=== PATIENT | male | born 1980 | race Hispanic/Latino ===

== ENCOUNTER 2019-07-01 10:02 | Emergency (ER) | payer SELFPAY ==
[~2019-07-01] VITALS: Ht 165.1 cm; Wt 68.0 kg
--- OUTSIDE RECORDS SUMMARY | 2019-07-01 10:05 | XMS REPORT ---
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 Allergies, Adverse Reactions, Alerts Allergy Name Allergy Type Status Severity Reaction(s) Onset Date Inactive Date Treating Clinician Comments No Known Allergies DA Active U 2018-09-04 00:00:00 Medications This patient has no known medications. Results Test Description Test Time Test Comments Text Results Atomic Results Result Comments LIPASE 2018-09-09 08:23:00 LIPASE (test code=LIP) 1541 U/L 73.0-393.0 [id number] 10:41:00* Test Item Value Reference Range Comments LIPASE (test code=LIP) 1370 U/L 73.0-393.0 [id number] 07:53:00* Test Item Value Reference Range Comments LIPASE (test code=LIP) 2076 U/L 73.0-393.0 COMPREHENSIVE METABOLIC [id number] 05:50:00* Test Item Value Reference Range Comments SODIUM (test code=NA) 137 mmol/L 136-145 POTASSIUM (test code=K) 3.4 mmol/L 3.5-5.1 CHLORIDE (test code=CL) 103.0 mmol/L 98-107 CARBON DIOXIDE (test code=CO2) 26.0 mmol/L 21-32 ANION GAP (test code=GAP) 11.4 10-20 GLUCOSE (test code=GLU) 74 mg/dL 74-106 BLOOD UREA NITROGEN (test code=BUN) 12 mg/dL 7-18 GLOMERULAR FILTRATION RATE (test code=GFR) > 60 mL/min >=60 Estimated GFR by using Modified MDRD formula.Chronic kidney disease is defined as either kidney damageor GFR <60 mL/min/1.73 m2 for >3 months. CREATININE (test code=CREAT) 0.70 mg/dL 0.7-1.3 BUN/CREATININE RATIO (test code=BUN/CREA) 16.8 10-20 TOTAL PROTEIN (test code=PROT) 6.8 gram/dL 6.4-8.2 ALBUMIN (test code=ALB) 3.3 g/dL 3.4-5.0 GLOBULIN (test code=GLOB) 3.5 gram/dL 2.7-4.2 ALBUMIN/GLOBULIN RATIO (test code=A/G) 0.9 0.75-1.50 CALCIUM (test code=CA) 8.7 mg/dL 8.5-10.1 BILIRUBIN TOTAL (test code=BILT) 1.10 mg/dL 0.0-1.0 SGOT/AST (test code=AST) 26 IUnit/L 15-37 SGPT/ALT (test code=ALT) 32 IUnit/L 12-78 ALKALINE PHOSPHATASE TOTAL (test code=ALKP) 86 IUnit/L 45-117 Note change in reference range due to change in reagent. [id number] 05:50:00* Test Item Value Reference Range Comments LIPASE (test code=LIP) 5933 U/L 73.0-393.0 COMPREHENSIVE METABOLIC [id number] 05:40:00* Test Item Value Reference Range Comments SODIUM (test code=NA) 137 mmol/L 136-145 POTASSIUM (test code=K) 3.4 mmol/L 3.5-5.1 CHLORIDE (test code=CL) 103.0 mmol/L 98-107 CARBON DIOXIDE (test code=CO2) mmol/L 21-32 ANION GAP (test code=GAP) 10-20 GLUCOSE (test code=GLU) mg/dL 74-106 BLOOD UREA NITROGEN (test code=BUN) mg/dL 7-18 GLOMERULAR FILTRATION RATE (test code=GFR) mL/min >=60 CREATININE (test code=CREAT) mg/dL 0.7-1.3 BUN/CREATININE RATIO (test code=BUN/CREA) 10-20 TOTAL PROTEIN (test code=PROT) gram/dL 6.4-8.2 ALBUMIN (test code=ALB) g/dL 3.4-5.0 GLOBULIN (test code=GLOB) gram/dL 2.7-4.2 ALBUMIN/GLOBULIN RATIO (test code=A/G) 0.75-1.50 CALCIUM (test code=CA) mg/dL 8.5-10.1 BILIRUBIN TOTAL (test code=BILT) mg/dL 0.0-1.0 SGOT/AST (test code=AST) IUnit/L 15-37 SGPT/ALT (test code=ALT) IUnit/L 12-78 ALKALINE PHOSPHATASE TOTAL (test code=ALKP) IUnit/L 45-117 [id number] 05:40:00* Test Item Value Reference Range Comments LIPASE (test code=LIP) U/L 73.0-393.0 CBC W/AUTO [id number] 05:37:00* Test Item Value Reference Range Comments WHITE BLOOD CELL (test code=WBC) 11.7 K/mm3 4.5-12.5 RED BLOOD CELL (test code=RBC) 4.75 mill/mm3 4.0-5.8 HEMOGLOBIN (test code=HGB) 15.5 gram/dL 13.0-17.5 HEMATOCRIT (test code=HCT) 44.9 % 42.0-52.0 MEAN CELL VOLUME (test code=MCV) 94.5 fL 80-98 MEAN CELL HGB (test code=MCH) 32.6 picogram 27.0-33.0 MEAN CELL HGB CONCETRATION (test code=MCHC) 34.5 gram/dL 33.0-36.0 RED CELL DISTRIBUTION WIDTH (test code=RDW) 12.8 % 11.6-16.2 RED CELL DISTRIBUTION WIDTH SD (test code=RDW-SD) 45.0 fL 37.0-51.0 PLATELET COUNT (test code=PLT) 297 K/mm3 150-450 MEAN PLATELET VOLUME (test code=MPV) 10.2 fL 6.7-11.0 NEUTROPHIL % (test code=NT%) 79.3 % 39.0-69.0 IMMATURE GRANULOCYTE % (test code=IG%) 0.7 % 0.0-5.0 LYMPHOCYTE % (test code=LY%) 11.8 % 25.0-55.0 MONOCYTE % (test code=MO%) 6.4 % 0.0-10.0 EOSINOPHIL % (test code=EO%) 1.2 % 0.0-5.0 BASOPHIL % (test code=BA%) 0.6 % 0.0-1.0 NUCLEATED RBC % (test code=NRBC%) 0.0 % 0-0 NEUTROPHIL # (test code=NT#) 9.32 K/mm3 1.8-7.7 IMMATURE GRANULOCYTE # (test code=IG#) 0.08 x10 3/uL 0-0.03 LYMPHOCYTE # (test code=LY#) 1.38 K/mm3 1.0-5.0 MONOCYTE # (test code=MO#) 0.75 K/mm3 0-0.8 EOSINOPHIL # (test code=EO#) 0.14 K/mm3 0.0-0.5 BASOPHIL # (test code=BA#) 0.07 K/mm3 0.0-0.2 NUCLEATED RBC # (test code=NRBC#) 0.00 K/mm3 0.0-0.1 MANUAL DIFF REQUIRED (test code=MDIFF) NO DRUGS OF ABUSE SCREEN [id number] 16:07:00* Test Item Value Reference Range Comments UA PH DIPSTICK (test code=MANJIT) 6.0 5.0-8.0 URN COCAINE (test code=COCAURN) NEGATIVE <300 ng/mL URN CANNABINOIDS (test code=CANNABURN) NEGATIVE <50 ng/mL URN AMPHETAMINE (test code=AMPHETURN) NEGATIVE <1000 ng/mL URN BARBITURATE (test code=BARBITURN) NEGATIVE <200 ng/mL URN BENZODIAZEPINE (test code=BENZOURN) NEGATIVE <200 ng/mL URN OPIATES (test code=OPIATURN) POSITIVE <300 ng/mL This test provides only a preliminary test result. A morespecific alternate chemical method must be used in order toobtain a confirmed analytical result. Gas chromatography/mass spectrometry (GC/MS) is thepreferred confirmatory method. Other chemical confirmationmethods are available. Clinical consideration and professional judgment should be applied to any drug of abusetest result, particularly when preliminary positive resultsare used.Unconfirmed screening results must not be used fornon-medical purposes (e.g., employment testing, legaltesting). URN PHENCYCLIDINE (PCP) (test code=PHENCURN) NEGATIVE <25 ng/mL URN METHADONE (test code=METHAURN) NEGATIVE <300 ng/mL [id number] 15:57:00* Test Item Value Reference Range Comments PHOSPHORUS (test code=PHOS) 3.5 mg/dL 2.5-4.9 [id number] 15:57:00* Test Item Value Reference Range Comments MAGNESIUM (test code=MAG) 1.5 mg/dL 1.8-2.4 VITAMIN [id number] 15:57:00* Test Item Value Reference Range Comments VITAMIN B12 (test code=VITB12) 304 pg/mL 193-986 DRUGS OF ABUSE SCREEN [id number] 15:50:00* Test Item Value Reference Range Comments UA PH DIPSTICK (test code=MANJIT) 6.0 5.0-8.0 URN COCAINE (test code=COCAURN) <300 ng/mL URN CANNABINOIDS (test code=CANNABURN) <50 ng/mL URN AMPHETAMINE (test code=AMPHETURN) <1000 ng/mL URN BARBITURATE (test code=BARBITURN) <200 ng/mL URN BENZODIAZEPINE (test code=BENZOURN) <200 ng/mL URN OPIATES (test code=OPIATURN) <300 ng/mL URN PHENCYCLIDINE (PCP) (test code=PHENCURN) <25 ng/mL URN METHADONE (test code=METHAURN) <300 ng/mL LIPID PROFILE (CORONARY RISK)2018-09-04 15:25:00* Test Item Value Reference Range Comments TRIGLYCERIDES (test code=TRIG) 145 mg/dL 20-150 CHOLESTEROL (test code=CHOL) 285 mg/dL 0-200 CHOLESTEROL/HDL RATIO (test code=CHOLHDL) 4.0 RATIO 0-4.9 RISK ASSOCIATED WITH CHOL/HDL RATIOS: Risk Male Female1/2 AVERAGE 3.43 3.27AVERAGE 4.97 4.442X AVERAGE 9.55 7.053X AVERAGE 23.39 11.04 REFERENCE VALUE IS RELATED TO RISK LEVELS ASRECOMMENDED BY THE [facility]. HEART, LUNG, AND BLOOD INST. HDL CHOLESTEROL (test code=HDL) 64 mg/dL 40-60 LIPOPROTEIN LDL (test code=LDL) 200 mg/dL 100-129 RN PERSONNEL, CONTACT PHYSICIAN IMMEDIATELY IF THIS IS A STROKE, AMI OR CAROTID STENOSIS PATIENT WHEN THE LDL >100 (1ST OCCURENCE, THIS ADMISSION) Reference Interval: mg/dL mmol/L Optimal <100 <2.6Near/above optimal 100-129 2.6- 3.3Borderline High 130-159 3.4-4.1High 160-189 4.1-4.9Very High >=190 >=4.9=========This LDL result is a direct measurement.========= - CT ABD PELVIS [id number] 12:44:00 Name: DANIEL DELGADILLO [facility] : 1980 Age/S: 38 / M [address] [facility] Unit #: [id number] Loc: [place] [address] Phys: Melinda Tovar MD Acct: [id number] Dis Date: Status: REG ER PHONE #: [phone] Exam Date: 09/04/2018 1225 FAX #: [phone] Reason: epigastric pain EXAMS: CPT CODE: [id number] CT ABD PELVIS W/CONT 35361 HISTORY: Epigastric pain. COMPARISON: None available. CT abdomen and pelvis with IV contrast: 100 mL of Isovue-370. Automated exposure control. CT of abdomen: The lung bases are clear with dependent changes. The liver is enhancing homogeneously with patchy fatty infiltration. Liver is measuring 15.4 cm in length. Gallbladder is without radiopaque stones. Unremarkable spleen. Stomach distended incompletely but it is normal in appearance. Pancreas enhances homogeneously with inflammatory changes in the pancreatic tail with peripancreatic fluid suggestive of acute pancreatitis. Fluid extending into the anterior left pararenal space and in the left paracolic gutter. No necrosis. No ductal dilatation. No abscess or pseudocyst. Splenic vein and artery remain patent. Portal vein is patent. Unremarkable adrenals. Kidneys are free from hydroureteronephrosis with homogeneous enhancement. Bilateral excretion is noted. Bosniak 2 lesion measuring 1.3 cm in the lateral left lower pole with average Hounsfield unit measurement ranging up to 41. No pathologic adenopathy. Well-opacified abdominal and pelvic vasculature. No bowel obstruction or colitis or diver ticulitis or enteritis. CT PELVIS: Appendix is vasu l. Pelvic bowel loops are unobstructed. Mild thickening of the left colo edin wall which appears secondary to the inflammation within the pancreas w ith paracolic gutter fluid. Unremarkable urinary bladder. The pro state is not enlarged. Phleboliths. No free fluid or free air or abscess within the pelvis. Subcutaneous tissues and the musculature are n ormal in appearance. No lytic or blastic lesions are noted within the bon y skeleton. Pars PAGE 1 Signed Report (CONTINUED) Name: DANIEL DELGADILLO [facility] : 1980 Age/S: 38 / M [address] [facility] Unit #: [id number] Loc: [place] [address] Phys: Melinda Tovar MD Acct: [id number] Dis Date: Status: REG ER PHONE #: [phone] Exam Date: 09/04/2018 1225 FAX #: [phone] Reason: epigastric pain EXAMS: CPT CODE: [id number] CT ABD PELVIS W/CONT 55011 <Continued> interarticularis fracture at L5-S1 level bilaterally. No spondylo listhesis. Vertebral body heights are maintained. IMPRESSION: FINDINGS consistent with acute pancreatitis involving the tail of the pancreas. Peripancreatic fluid as well as fluid extending into t he anterior left pararenal space and in the paracolic gutter with secondary inflammation of the colon. No pancreatic pseudocyst. No ab scess or necrosis or ductal dilatation. at 1244 Reported and signed by: Grabiel Macario M.D. CC: Melinda Tovar MD Technologist:Jason Whitehead RT(R),(MR),(CT); CTDI: DLP: Trnscb Date/Time: 09/04/2018 (124) [email or web address] Orig Print D/T: S: 09/04/2018 (1245) CTDI: DLP: PAGE 2 Signed Report URINALYSIS [id number] 11:58:00* Test Item Value Reference Range Comments UA COLOR (test code=COLU) LIGHT YELLOW YELLOW UA APPEARANCE (test code=APPU) CLEAR CLEAR UA GLUCOSE DIPSTICK (test code=DGLUU) NEGATIVE mg/dL NEGATIVE UA BILIRUBIN DIPSTICK (test code=BILU) NEGATIVE mg/dL NEGATIVE UA KETONE DIPSTICK (test code=KETU) 20 (Small) mg/dL NEGATIVE UA SPECIFIC GRAVITY (test code=SGU) 1.011 1.001-1.035 UA BLOOD DIPSTICK (test code=KARSON) 1+ (Small) NEGATIVE UA PH DIPSTICK (test code=MANJIT) 6.0 5.0-8.0 UA PROTEIN DIPSTICK (test code=PROU) Negative mg/dL NEGATIVE UA UROBILINIOGEN DIPSTICK (test code=URO) NEGATIVE mg/dL NEGATIVE UA NITRITE DIPSTICK (test code=MARY ANN) NEGATIVE NEGATIVE UA LEUKOCYTE ESTERASE W REFLEX (test code=LEUUR) NEGATIVE NEGATIVE UA WBC (test code=WBCU) 0-5 #/HPF 0-5 UA RBC (test code=RBCU) 0-2 #/HPF 0-5 UA MUCUS (test code=MUCU) FEW #/LPF FEW Urine Source? Clean CatchURINALYSIS [id number] 11:54:00* Test Item Value Reference Range Comments UA COLOR (test code=COLU) LIGHT YELLOW YELLOW UA APPEARANCE (test code=APPU) CLEAR CLEAR UA GLUCOSE DIPSTICK (test code=DGLUU) NEGATIVE mg/dL NEGATIVE UA BILIRUBIN DIPSTICK (test code=BILU) NEGATIVE mg/dL NEGATIVE UA KETONE DIPSTICK (test code=KETU) 20 (Small) mg/dL NEGATIVE UA SPECIFIC GRAVITY (test code=SGU) 1.011 1.001-1.035 UA BLOOD DIPSTICK (test code=KARSON) 1+ (Small) NEGATIVE UA PH DIPSTICK (test code=MANJIT) 6.0 5.0-8.0 UA PROTEIN DIPSTICK (test code=PROU) Negative mg/dL NEGATIVE UA UROBILINIOGEN DIPSTICK (test code=URO) NEGATIVE mg/dL NEGATIVE UA NITRITE DIPSTICK (test code=MARY ANN) NEGATIVE NEGATIVE UA LEUKOCYTE ESTERASE W REFLEX (test code=LEUUR) NEGATIVE NEGATIVE UA WBC (test code=WBCU) 0-5 #/HPF 0-5 UA RBC (test code=RBCU) 0-2 #/HPF 0-5 Urine Source? Clean CatchURINALYSIS [id number] 11:49:00* Test Item Value Reference Range Comments UA COLOR (test code=COLU) LIGHT YELLOW YELLOW UA APPEARANCE (test code=APPU) CLEAR CLEAR UA GLUCOSE DIPSTICK (test code=DGLUU) NEGATIVE mg/dL NEGATIVE UA BILIRUBIN DIPSTICK (test code=BILU) NEGATIVE mg/dL NEGATIVE UA KETONE DIPSTICK (test code=KETU) 20 (Small) mg/dL NEGATIVE UA SPECIFIC GRAVITY (test code=SGU) 1.011 1.001-1.035 UA BLOOD DIPSTICK (test code=KARSON) 1+ (Small) NEGATIVE UA PH DIPSTICK (test code=MANJIT) 6.0 5.0-8.0 UA PROTEIN DIPSTICK (test code=PROU) Negative mg/dL NEGATIVE UA UROBILINIOGEN DIPSTICK (test code=URO) NEGATIVE mg/dL NEGATIVE UA NITRITE DIPSTICK (test code=MARY ANN) NEGATIVE NEGATIVE UA LEUKOCYTE ESTERASE W REFLEX (test code=LEUUR) NEGATIVE NEGATIVE UA WBC (test code=WBCU) per HPF 0-5 Urine Source? Clean CatchCOMPREHENSIVE METABOLIC [id number] 09:48:00* Test Item Value Reference Range Comments SODIUM (test code=NA) 134 mmol/L 136-145 POTASSIUM (test code=K) 4.0 mmol/L 3.5-5.1 CHLORIDE (test code=CL) 100.0 mmol/L 98-107 CARBON DIOXIDE (test code=CO2) 25.0 mmol/L 21-32 ANION GAP (test code=GAP) 13.0 10-20 GLUCOSE (test code=GLU) 109 mg/dL 74-106 BLOOD UREA NITROGEN (test code=BUN) 11 mg/dL 7-18 GLOMERULAR FILTRATION RATE (test code=GFR) > 60 mL/min >=60 Estimated GFR by using Modified MDRD formula.Chronic kidney disease is defined as either kidney damageor GFR <60 mL/min/1.73 m2 for >3 months. CREATININE (test code=CREAT) 0.80 mg/dL 0.7-1.3 BUN/CREATININE RATIO (test code=BUN/CREA) 13.1 10-20 TOTAL PROTEIN (test code=PROT) 7.9 gram/dL 6.4-8.2 ALBUMIN (test code=ALB) 3.8 g/dL 3.4-5.0 GLOBULIN (test code=GLOB) 4.1 gram/dL 2.7-4.2 ALBUMIN/GLOBULIN RATIO (test code=A/G) 0.9 0.75-1.50 CALCIUM (test code=CA) 9.3 mg/dL 8.5-10.1 BILIRUBIN TOTAL (test code=BILT) 1.20 mg/dL 0.0-1.0 SGOT/AST (test code=AST) 50 IUnit/L 15-37 SGPT/ALT (test code=ALT) 48 IUnit/L 12-78 ALKALINE PHOSPHATASE TOTAL (test code=ALKP) 103 IUnit/L 45-117 Note change in reference range due to change in reagent. [id number] 09:48:00* Test Item Value Reference Range Comments LIPASE (test code=LIP) 3721 U/L 73.0-393.0 CBC W/AUTO [id number] 09:26:00* Test Item Value Reference Range Comments WHITE BLOOD CELL (test code=WBC) 12.6 K/mm3 4.5-12.5 RED BLOOD CELL (test code=RBC) 4.88 mill/mm3 4.0-5.8 HEMOGLOBIN (test code=HGB) 16.2 gram/dL 13.0-17.5 HEMATOCRIT (test code=HCT) 45.6 % 42.0-52.0 MEAN CELL VOLUME (test code=MCV) 93.4 fL 80-98 MEAN CELL HGB (test code=MCH) 33.2 picogram 27.0-33.0 MEAN CELL HGB CONCETRATION (test code=MCHC) 35.5 gram/dL 33.0-36.0 RED CELL DISTRIBUTION WIDTH (test code=RDW) 12.9 % 11.6-16.2 RED CELL DISTRIBUTION WIDTH SD (test code=RDW-SD) 44.4 fL 37.0-51.0 PLATELET COUNT (test code=PLT) 324 K/mm3 150-450 MEAN PLATELET VOLUME (test code=MPV) 9.7 fL 6.7-11.0 NEUTROPHIL % (test code=NT%) 82.8 % 39.0-69.0 IMMATURE GRANULOCYTE % (test code=IG%) 1.3 % 0.0-5.0 LYMPHOCYTE % (test code=LY%) 8.9 % 25.0-55.0 MONOCYTE % (test code=MO%) 6.2 % 0.0-10.0 EOSINOPHIL % (test code=EO%) 0.2 % 0.0-5.0 BASOPHIL % (test code=BA%) 0.6 % 0.0-1.0 NUCLEATED RBC % (test code=NRBC%) 0.0 % 0-0 NEUTROPHIL # (test code=NT#) 10.43 K/mm3 1.8-7.7 IMMATURE GRANULOCYTE # (test code=IG#) 0.16 x10 3/uL 0-0.03 LYMPHOCYTE # (test code=LY#) 1.12 K/mm3 1.0-5.0 MONOCYTE # (test code=MO#) 0.78 K/mm3 0-0.8 EOSINOPHIL # (test code=EO#) 0.02 K/mm3 0.0-0.5 BASOPHIL # (test code=BA#) 0.08 K/mm3 0.0-0.2 NUCLEATED RBC # (test code=NRBC#) 0.00 K/mm3 0.0-0.1 MANUAL DIFF REQUIRED (test code=MDIFF) NO
[2019-07-01] MEDS ORDERED: FAMOTIDINE 20 MG TAB PO ONE (10:30)
[2019-07-01] MEDS ORDERED: DIPHENHYDRAMINE HCL 25 MG CAP PO ONE (10:30)
[2019-07-01] MEDS ORDERED: PREDNISONE 20 MG TAB PO ONE (10:30)
[2019-07-01] MEDS ORDERED: AMLODIPINE BESYLATE 5 MG TAB PO ONE (10:30)
== END 2019-07-01 11:00 | disposition home or self-care (01) ==
LOC: ER 10:02
DX: L20.83 Infantile (acute) (chronic) eczema (principal); I10 Essential (primary) hypertension
CPT/HCPCS: 99283; J7512

== ENCOUNTER 2019-07-02 08:02 | Inpatient (IN) | payer SELFPAY ==
[~2019-07-02] VITALS: Ht 165.1 cm; Wt 68.0 kg
[2019-07-02] MEDS ORDERED: MORPHINE SULFATE 5 MG/ML VIAL IV ONE (08:30)
[2019-07-02] MEDS ORDERED: SODIUM CHLORIDE 0.9% 1000ML 1,000 ML IV ONE (08:30)
[2019-07-02] MEDS ORDERED: FAMOTIDINE 20 MG/2 ML VIAL IV ONE (08:30)
[2019-07-02] MEDS ORDERED: DICYCLOMINE HCL 20 MG/2 ML VIAL IM ONE (08:30)
[2019-07-02] MEDS ORDERED: KETOROLAC TROMETHAMINE 30 MG/ML VIAL ONE (08:31)
[2019-07-02 08:46] LABS: BASOPHILS # (AUTO) 0.1 (0.0-0.1); BASOPHILS % 0.3 % (0.0-1.0); EOSINOPHILS # (AUTO) 0.1 (0.0-0.4); EOSINOPHILS % 0.3 % (0.0-6.0); HEMATOCRIT 43.3 % (38.2-49.6); HEMOGLOBIN 15.7 g/dL (14.0-18.0); LYMPHOCYTES # (AUTO) 2.8 (1.0-3.2); MEAN CORPUSCULAR HEMOGLOBIN 32.6 pg (28-32); MEAN CORPUSCULAR HGB CONC 36.3 g/dL (31-35); MEAN CORPUSCULAR VOLUME 89.8 fL (81-99); MONOCYTES # (AUTO) 1.4 (0.2-0.8); MONOCYTES % 7.5 % (4.4-11.3); NEUTROPHILS # (AUTO) 14.3 (2.1-6.9); NEUTROPHILS % 76.3 % (38.7-80.0); PLATELET COUNT 431 x10e3/uL (140-360); RED BLOOD COUNT 4.82 x10e6/uL (4.3-5.7)
[2019-07-02 08:49] LABS: BILIRUBIN,URINE NEGATIVE (NEGATIVE); CLARITY,URINE CLEAR (CLEAR); COLOR,URINE YELLOW (YELLOW); KETONES,URINE NEGATIVE (NEGATIVE); LEUKOCYTE ESTERASE ,URINE NEGATIVE (NEGATIVE); NITRITE,URINE NEGATIVE (NEGATIVE); PROTEIN,URINE DIPSTICK TRACE (NEGATIVE); URINE UROBILINOGEN 0.2 mg/dL (0.2 - 1)
[2019-07-02] MEDS ORDERED: KETOROLAC TROMETHAMINE 30 MG/ML VIAL IV ONE (09:00)
[2019-07-02] MEDS ORDERED: ONDANSETRON HCL INJ 2MG/ML 2ML 2 MG/ML VIAL IV ONE (09:00)
[2019-07-02 09:01] LABS: AMPHETAMINES SCREEN,URINE NEGATIVE (NEGATIVE); BENZODIAZEPINES SCREEN,URINE NEGATIVE (NEGATIVE); PHENCYCLIDINE SCREEN,URINE NEGATIVE (NEGATIVE)
[2019-07-02 09:04] LABS: ALANINE AMINOTRANSFERASE 18 IU/L (0-55); ALBUMIN/GLOBULIN RATIO 1.2 (0.8-2.0); ALKALINE PHOSPHATASE 77 IU/L (40-150); ANION GAP 15.6 mmol/L (8-16); BLOOD UREA NITROGEN 7 mg/dL (7-26); BUN/CREATININE RATIO 7 (6-25); CARBON DIOXIDE 24 mmol/L (22-29); CHLORIDE 104 mmol/L (98-107); CREATININE, SERUM 0.97 mg/dL (0.72-1.25); EST GLOMERULAR FILTRATION RATE > 60 ML/MIN (60-); GLUCOSE 127 mg/dL (74-118); POTASSIUM 3.6 mmol/L (3.5-5.1); SODIUM 140 mmol/L (136-145)
[2019-07-02 09:05] LABS: AMYLASE 180 U/L (25-125); LIPASE 350 U/L (8-78)
[2019-07-02 09:11] LABS: BACTERIA,URINE FEW /HPF; WBC,URINE (MAN) 0-5 /HPF (0-5)
[2019-07-02 09:12] LABS: EPITHELIAL CELLS,URINE FEW /LPF; MUCUS,URINE MANY (RARE)
[2019-07-02] MEDS ORDERED: MORPHINE SULFATE INJ 4 MG/ML INJ 1ML ONE (09:47)
[2019-07-02] MEDS ORDERED: IOPAMIDOL 370 MG/ML 200 ML INFUS..BTL INJ ONE (10:39)
[2019-07-02] MEDS ORDERED: SODIUM CHLORIDE 0.9% 50ML 50 ML ONE (10:39)
--- NOTE | 2019-07-02 11:09 | Diagnostic Imaging Report ---
EXAM: CT Abdomen and Pelvis WITH intravenous contrast INDICATION: Abdominal pain COMPARISON: None. TECHNIQUE: Abdomen and pelvis were scanned utilizing a multidetector helical scanner from the lung base to the pubic symphysis after administration of IV contrast. Coronal and sagittal reformations were obtained. Routine protocol was performed. Scan was performed during portal venous phase. IV CONTRAST: 100mL of Isovue 370 ORAL CONTRAST: Water RADIATION DOSE: Total DLP: 223.1 mGy*cm Dose modulation, iterative reconstruction, and/or weight based adjustment of the mA/kV was utilized to reduce the radiation dose to as low as reasonably achievable. FINDINGS: LOWER THORAX: Mild left basilar dependent subsegmental atelectasis. HEPATOBILIARY: Diffuse hepatic steatosis with subtle geographic areas of hypodensity in the right liver likely reflecting focal fat. No focal liver lesion. SPLEEN: No splenomegaly. PANCREAS: There is peripancreatic fat stranding and a small amount of free fluid most notably adjacent to the pancreatic tail and to a lesser extent pancreatic body consistent with acute pancreatitis. Subtle pancreatic tail parenchymal hypoenhancement. No focal pancreatic mass or ductal dilation. ADRENALS: No adrenal nodules. KIDNEYS/URETERS: No hydronephrosis, stones, or solid mass lesions. PELVIC ORGANS/BLADDER: Unremarkable. PERITONEUM / RETROPERITONEUM: No free air or fluid. LYMPH NODES: No lymphadenopathy. VESSELS: Unremarkable. GI TRACT: Mild diverticulosis. No CT evidence of diverticulitis. No abnormal bowel thickening. No bowel obstruction. Normal appendix. BONES AND SOFT TISSUES: No acute osseous injury. No suspicious lytic or blastic lesions. IMPRESSION: Acute pancreatitis. Subtle pancreatic tail parenchymal hypoenhancement may reflect early necrosis. No associated focal fluid collection. Signed by: Melita Riojas MD on 07/02/2019 11:06 AM
[2019-07-02] MEDS ORDERED: SODIUM CHLORIDE 0.9% 1000ML 1,000 ML IV SCH (11:28)
[2019-07-02] MEDS ORDERED: MORPHINE SULFATE 2 MG/ML SYR 1ML IV PRN (11:30)
--- NOTE | 2019-07-02 11:55 | NUR ---
Received patient from ER. Respiration even and unlabored without SOB. Family member at bedside.
[2019-07-02 12:00] VITALS: BP 185/88
[2019-07-02] MEDS ORDERED: MORPHINE SULFATE INJ 4 MG/ML INJ 1ML IV PRN (12:00)
[2019-07-02 12:28] VITALS: BP 155/66
[2019-07-02] MEDS: ONDANSETRON HCL INJ 2MG/ML 2ML 2 MG/ML VIAL IV PRN (12:51)
[2019-07-02] MEDS: HYDROMORPHONE 1MG/1ML INJ IV PRN ×4 (12:51→21:47)
[2019-07-02] MEDS: DICYCLOMINE HCL 10 MG CAP PO SCH ×2 (14:35→21:00)
[2019-07-02] MEDS ORDERED: LACTATED RINGER'S 1,000 ML IV SCH ×2 (17:00→18:00)
[2019-07-02] MEDS: HYDRALAZINE HCL 20 MG/ML VIAL IV PRN ×2 (17:04→21:47)
[2019-07-02 17:07] VITALS: BP 222/93
[2019-07-02] MEDS: KETOROLAC TROMETHAMINE 30 MG/ML VIAL IV PRN ×2 (17:54→23:53)
[2019-07-02 18:38] VITALS: BP 132/88
[2019-07-02] MEDS: LACTATED RINGER'S 1,000 ML IV SCH ×2 (18:46→23:53)
--- NOTE | 2019-07-02 19:10 | NUR ---
Report given to nightman. Patient lying in bed with eyes open. Respiration even and unlabored without SOB. Call light in reach.
[2019-07-02 19:22] VITALS: BP 186/97
--- NOTE | 2019-07-02 19:22 | NUR ---
PT IS RESTING IN BED. RESPIRATION IS EVEN AND UNLABORED, NO DISTRESS NOTED. BED IN THE LOWEST POSITION, LOCKED, AND CALL LIGHT WITHIN REACH. WILL CONTINUE TO MONITOR.
[2019-07-02 19:50] LABS: CHOL/HDL RATIO 4.6 (3.9-4.7)
[2019-07-02 20:46] VITALS: BP 186/97
[2019-07-02] MEDS: PIPER-TAZ 3.375 GM 50 ML IV SCH (21:00)
[2019-07-02] MEDS: FAMOTIDINE 20 MG/2 ML VIAL IV SCH (21:00)
--- NOTE | 2019-07-02 23:52 | History and Physical ---
REASON FOR ADMISSION: This 39-year-old male comes in with abdominal pain. HISTORY OF PRESENTING ILLNESS: Ms. Yunier Wallace with a history of a long-standing history of alcoholism, was usual state of health until the patient started with abdominal pain. The patient came in yesterday was found to have a guttate psoriasis, was given prednisone and sent home. The patient apparently started with abdominal pain which was 10/10 in intensity. Came into the emergency room. A CT scan was done which showed pancreatitis with possible necrotizing areas in the tail of the pancreas. PAST MEDICAL HISTORY: History of psoriasis, history of reflux esophagitis. SURGICAL HISTORY: Noncontributory. SOCIAL HISTORY: Drinks about four mix drinks or more according to the at nighttime. History of smoking cigar. No IV drug abuse. REVIEW OF SYSTEMS: Negative for chest pain. Positive for some shortness of breath. Positive for nausea. Positive for vomiting. Positive for abdominal pain. No diarrhea. No constipation. No rectal bleeding. No hematochezia. No hematemesis. PHYSICAL EXAMINATION: GENERAL: The patient is alert and oriented x3, in pain. Pain is controlled with ketorolac at this point of time. VITAL SIGNS: Temperature is 97.5, pulse of 80, respirations of 18, blood pressure is 132/88, pulse oximetry of 98%. HEENT: Normocephalic, atraumatic. No icterus present. CVS: S1 and S2 normal. Regular rate and rhythm. ABDOMEN: Tender in the epigastrium. EXTREMITIES: No clubbing, no cyanosis, no edema. SKIN: Multiple areas of sclerotic plaques, large plaques on the forehead and also in the upper extremities. LABORATORY VALUES: White count is 18,000, hemoglobin of 15.7, hematocrit of 43.3. Chemistry shows sodium of 140, potassium 3.6, BUN of 7, creatinine of 0.97, glucose 127, amylase 180, lipase 350. Toxicology, all were negative except for ethyl alcohol of less than 10. IMAGING STUDIES: Abdominal CT shows acute pancreatitis, necrosis. No associated focal fluid collection. ASSESSMENT: 1. Acute pancreatitis secondary to alcoholism. 2. Plan would be to keep the patient n.p.o. 3. Hypertension secondary to pain. 4. Pain control. 5. Go and check his cholesterol levels. The patient is on IV fluids, given 2 L of boluses. The patient is currently on 250 mL/hr of LR. We will continue to monitor the patient. Keep the patient n.p.o. the patient has been given strict advice on alcohol dependency and avoidance of alcohol. Further recommendation per clinical course. present during the entire interview and examination of the patient. The patient is willing to try to withdraw from alcohol at this time. MD SOY Petersen/MODL /[id number]
[2019-07-03] VITALS (8 sets, daily range): BP systolic 137–177; BP diastolic 80–95
[2019-07-03] MEDS: PIPER-TAZ 3.375 GM 50 ML IV SCH ×4 (01:15→19:42)
[2019-07-03] MEDS: HYDROMORPHONE 1MG/1ML INJ IV PRN ×7 (01:15→23:24)
[2019-07-03] MEDS: LACTATED RINGER'S 1,000 ML IV SCH ×5 (03:53→23:19)
[2019-07-03] MEDS: HYDRALAZINE HCL 20 MG/ML VIAL IV PRN (03:54)
[2019-07-03 05:20] LABS: BASOPHILS % 0.1 % (0.0-1.0); HEMATOCRIT 41.9 % (38.2-49.6); HEMOGLOBIN 14.7 g/dL (14.0-18.0); LYMPHOCYTES # (AUTO) 0.8 (1.0-3.2); LYMPHOCYTES % 4.3 % (18.0-39.1); MEAN CORPUSCULAR HEMOGLOBIN 32.2 pg (28-32); MEAN CORPUSCULAR HGB CONC 35.1 g/dL (31-35); MEAN CORPUSCULAR VOLUME 91.7 fL (81-99); MONOCYTES # (AUTO) 0.9 (0.2-0.8); MONOCYTES % 4.6 % (4.4-11.3); NEUTROPHILS # (AUTO) 16.6 (2.1-6.9); NEUTROPHILS % 90.2 % (38.7-80.0); PLATELET COUNT 304 x10e3/uL (140-360); RED BLOOD COUNT 4.57 x10e6/uL (4.3-5.7); RED CELL DISTRIBUTION WIDTH 14.1 % (11.7-14.4)
[2019-07-03 05:46] LABS: ALANINE AMINOTRANSFERASE 16 IU/L (0-55); ALBUMIN 3.4 g/dL (3.5-5.0); ALBUMIN/GLOBULIN RATIO 1.2 (0.8-2.0); ALKALINE PHOSPHATASE 71 IU/L (40-150); AMYLASE 521 U/L (25-125); ANION GAP 11.8 mmol/L (8-16); BLOOD UREA NITROGEN 9 mg/dL (7-26); BUN/CREATININE RATIO 12 (6-25); CALCIUM 9.4 mg/dL (8.4-10.2); CARBON DIOXIDE 29 mmol/L (22-29); CHLORIDE 98 mmol/L (98-107); CREATININE, SERUM 0.75 mg/dL (0.72-1.25); EST GLOMERULAR FILTRATION RATE > 60 ML/MIN (60-); GLUCOSE 101 mg/dL (74-118); LIPASE 784 U/L (8-78); POTASSIUM 3.8 mmol/L (3.5-5.1); SODIUM 135 mmol/L (136-145)
[2019-07-03] MEDS: KETOROLAC TROMETHAMINE 30 MG/ML VIAL IV PRN ×2 (05:50→13:51)
[2019-07-03] MEDS: FAMOTIDINE 20 MG/2 ML VIAL IV SCH ×2 (08:15→20:15)
[2019-07-03] MEDS: DICYCLOMINE HCL 10 MG CAP PO SCH ×3 (09:00→20:15)
--- NOTE | 2019-07-03 10:00 | Progress Note ---
DATE: SUBJECTIVE: The patient is a 39-year-old male, who came in with acute alcoholic pancreatitis. Currently, pain is better. No other complications. The patient is adequately urinating. No nausea, vomiting, or diarrhea. The patient is kept n.p.o. at this time. OBJECTIVE: VITAL SIGNS: Temperature is 96.7, pulse 72, respirations of 20, blood pressure is 172/93, pulse oximeter of 96% O2 on room air. HEENT: Normocephalic and atraumatic. No icterus present. CVS: S1 and S2 normal. Regular rate and rhythm. ABDOMEN: Tender in the epigastrium. EXTREMITIES: No clubbing, no cyanosis, no edema. LABORATORY VALUES: Sodium is 135, potassium is 3.8, BUN of 9, creatinine of 0.75. ALT and AST normal. Triglycerides 165, total cholesterol 255, HDL 56, LDL 166. Amylase has slightly gone up to 521, lipase of 784. IMAGING STUDY: Yesterday showed early necrosis of the pancreatic tail, otherwise fat stranding present. ASSESSMENT: A 39-year-old Mr. Wallace with: 1. Alcoholic pancreatitis. 2. Hypertension. 3. Psoriasis. 4. Hyperlipidemia. 5. Hypertension. PLAN: Continue with the patient being n.p.o. Trend his amylase and lipase. White count is elevated. The patient is on Zosyn at this time. We will continue to monitor the patient. Further recommendation per clinical course and possible discharge in 2-3 days depending on progression of his pain and also trend . MD SOY Petersen/MODL /[id number]
--- NOTE | 2019-07-03 14:25 | NUR ---
GAVE PACKET OF INFORMATION WITH [facility] FOR ASSISTANCE WITH LOW TO NO INCOME TO PATIENT. RESOURCES THAT PATIENT MAY BE ABLE TO FOLLOW UP UPON DISCHARGE. PT EDUCATED ON EACH RESOURCE AND UNDERSTANDING HOW TO FOLLOW UP TO SEE IF QUALIFIED FOR EACH RESOURCE
--- NOTE | 2019-07-03 18:58 | NUR ---
PT RESTING ON BED BED SIDE REPORT GIVEN TO ONCOMING NURSE
--- NOTE | 2019-07-03 19:15 | NUR ---
patient received awake, lying quietly in bed. no c/o pain noted. iv to left ac leaking ivf. iv d/c'd and #20 gauge placed to left upper arm at this time x 1 stick. pm assessment complete. patient instructed to call for assistance when needed.
[2019-07-03] MEDS: ONDANSETRON HCL INJ 2MG/ML 2ML 2 MG/ML VIAL IV PRN (19:43)
--- NOTE | 2019-07-03 19:43 | NUR ---
patient medicated with dilaudid 1mg and zofran 4mg ivp for c/o abd pain 02/19 at this time.
[2019-07-03] MEDS ORDERED: ACETAMINOPHEN 1000 MG/100 ML IV PRN (21:00)
[2019-07-03] MEDS ORDERED: ACETAMINOPHEN 1000 MG/100 ML 100 ML IV PRN (21:00)
--- NOTE | 2019-07-03 21:05 | NUR ---
temp 101.[address] Elkins re: elevated temp. patient medicated with tylenol 1000mg iv per orders.
--- NOTE | 2019-07-03 23:24 | NUR ---
Patient medicated for c/o abd pain 02/19 at this time.
[2019-07-04] VITALS (8 sets, daily range): BP systolic 138–163; BP diastolic 82–97
[2019-07-04] MEDS: PIPER-TAZ 3.375 GM 50 ML IV SCH ×4 (01:07→20:58)
[2019-07-04] MEDS: HYDROMORPHONE 1MG/1ML INJ IV PRN ×7 (02:51→22:39)
--- NOTE | 2019-07-04 02:51 | NUR ---
Patient medicated with dilaudid 1mg ivp for c/o abd pain 02/19 at this time.
[2019-07-04] MEDS: LACTATED RINGER'S 1,000 ML IV SCH ×6 (03:37→22:01)
[2019-07-04 05:20] LABS: BASOPHILS # (AUTO) 0.1 (0.0-0.1); BASOPHILS % 0.4 % (0.0-1.0); EOSINOPHILS # (AUTO) 0.1 (0.0-0.4); EOSINOPHILS % 0.4 % (0.0-6.0); HEMATOCRIT 39.5 % (38.2-49.6); HEMOGLOBIN 13.7 g/dL (14.0-18.0); LYMPHOCYTES # (AUTO) 0.9 (1.0-3.2); LYMPHOCYTES % 5.6 % (18.0-39.1); MEAN CORPUSCULAR HEMOGLOBIN 32.1 pg (28-32); MEAN CORPUSCULAR HGB CONC 34.7 g/dL (31-35); MEAN CORPUSCULAR VOLUME 92.5 fL (81-99); MONOCYTES # (AUTO) 0.7 (0.2-0.8); MONOCYTES % 4.3 % (4.4-11.3); NEUTROPHILS # (AUTO) 14.2 (2.1-6.9); NEUTROPHILS % 86.4 % (38.7-80.0); PLATELET COUNT 211 x10e3/uL (140-360); RED BLOOD COUNT 4.27 x10e6/uL (4.3-5.7); RED CELL DISTRIBUTION WIDTH 14.2 % (11.7-14.4)
[2019-07-04 05:45] LABS: ALANINE AMINOTRANSFERASE 12 IU/L (0-55); ALBUMIN 2.5 g/dL (3.5-5.0); ALBUMIN/GLOBULIN RATIO 0.8 (0.8-2.0); ALKALINE PHOSPHATASE 58 IU/L (40-150); ANION GAP 10.6 mmol/L (8-16); BLOOD UREA NITROGEN 10 mg/dL (7-26); BUN/CREATININE RATIO 13 (6-25); CALCIUM 8.4 mg/dL (8.4-10.2); CARBON DIOXIDE 29 mmol/L (22-29); CHLORIDE 97 mmol/L (98-107); CREATININE, SERUM 0.77 mg/dL (0.72-1.25); EST GLOMERULAR FILTRATION RATE > 60 ML/MIN (60-); GLUCOSE 77 mg/dL (74-118); LIPASE 208 U/L (8-78); POTASSIUM 3.6 mmol/L (3.5-5.1); SODIUM 133 mmol/L (136-145)
--- NOTE | 2019-07-04 06:07 | NUR ---
patient medicated with dilaudid 1mg ivp for c/o abd pain 02/19 at this time.
[2019-07-04 06:55] LABS: BAND NEUTROPHILS % (MANUAL) 1 %; EOSINOPHILS % (MANUAL) 1 % (0-7); LYMPHOCYTES % (MANUAL) 5 % (19-48); MONOCYTES % (MANUAL) 4 % (3.4-9.0); NEUTROPHILS % (MANUAL) 89 % (40-74)
[2019-07-04 06:58] LABS: PLATELET ESTIMATE ADEQUATE; PLATELET MORPHOLOGY COMMENT NORMAL; RBC MORPHOLOGY COMMENT NORMAL
--- NOTE | 2019-07-04 07:00 | NUR ---
BEDSIDE SHIFT REPORT RECEIVED FROM LINDA ENRIQUEZ. PT DENIES NEEDS AT THIS TIME.
[2019-07-04] MEDS: KETOROLAC TROMETHAMINE 30 MG/ML VIAL IV PRN ×2 (07:54→14:24)
--- NOTE | 2019-07-04 08:02 | Progress Note ---
DATE: SUBJECTIVE: The patient is a 39-year-old male with a history of pancreatitis. The patient also has alcoholism. The patient also has psoriasis. Currently, the patient's pain is better. He has no bowel movements yet. No flatus. No chest pains. No shortness of breath. Ran of fever yesterday, otherwise asymptomatic, has been in bed. Has been asked to mobilize. OBJECTIVE: VITAL SIGNS: Temperature is 99.1, T-max of 101.5, pulse of 95, respirations 17, blood pressure is 139/85, pulse oximetry of 96%, the patient is on room air. HEENT: Normocephalic and atraumatic. Pupils are reactive to light and accommodation. CVS: S1 and S2 normal. Regular rate and rhythm. ABDOMEN: bobbin winder tender in the right upper quadrant and the left upper quadrant, epigastric tenderness present too. No rebound present. EXTREMITIES: No clubbing, no cyanosis, no edema. SKIN AND INTEGUMENTARY SYSTEM: With psoriasis. LABORATORY VALUES: White count 16,000 down from 18,000 yesterday, hemoglobin of 13.7, neutrophil count is 86.4. Chemistry shows sodium 133, potassium of 3.6, BUN of 10.6, creatinine of 0.77, total bilirubin of 1.5, which has gone up from yesterday. Lipase has come down to 208. ASSESSMENT: A 39-year-old male with alcoholic pancreatitis. PLAN: Plan for lipase. Continue with n.p.o. Keep the patient inpatient and also continue with antibiotics, IV Zosyn q.6 hours for leukocytosis. The patient will be followed very carefully and p.o. diet has been strictly ordered. The patient's IV medications are hydromorphone as needed, Toradol q.6 hours as needed, Zosyn q.6 hours, acetaminophen as needed, and also hydralazine 10 mg for blood pressure control. Further recommendation per clinical course. Again, we will trend the patient's lipase and trend him clinically. MD SOY Petersen/DEVL /[id number]
[2019-07-04] MEDS: DICYCLOMINE HCL 10 MG CAP PO SCH ×4 (09:00→20:59)
[2019-07-04] MEDS: FAMOTIDINE 20 MG/2 ML VIAL IV SCH ×2 (09:05→20:58)
--- NOTE | 2019-07-04 19:28 | NUR ---
Patient received sitting up in bed. AAO x 4. No acute distress noted. Fall precautions implemented. Call light within reach.
[2019-07-05] VITALS (8 sets, daily range): BP systolic 143–172; BP diastolic 84–101
--- NOTE | 2019-07-05 00:28 | NUR ---
Dr. Keron Cuenca here to see patient. Patient's temperature elevated (100.8). New order received for Tylenol 650 mg QH PRN
[2019-07-05] MEDS ORDERED: ACETAMINOPHEN 325 MG TAB PO PRN (00:30)
[2019-07-05] MEDS: PIPER-TAZ 3.375 GM 50 ML IV SCH ×4 (02:00→20:30)
[2019-07-05] MEDS: LACTATED RINGER'S 1,000 ML IV SCH ×4 (02:01→20:30)
[2019-07-05] MEDS: HYDROMORPHONE 1MG/1ML INJ IV PRN ×4 (02:11→21:15)
[2019-07-05] MEDS: KETOROLAC TROMETHAMINE 30 MG/ML VIAL IV PRN ×3 (04:56→18:08)
[2019-07-05 05:58] LABS: BASOPHILS # (AUTO) 0.1 (0.0-0.1); BASOPHILS % 0.4 % (0.0-1.0); EOSINOPHILS % 0.3 % (0.0-6.0); HEMATOCRIT 35.6 % (38.2-49.6); HEMOGLOBIN 12.4 g/dL (14.0-18.0); LYMPHOCYTES # (AUTO) 1.3 (1.0-3.2); LYMPHOCYTES % 9.2 % (18.0-39.1); MEAN CORPUSCULAR HEMOGLOBIN 31.9 pg (28-32); MEAN CORPUSCULAR HGB CONC 34.8 g/dL (31-35); MEAN CORPUSCULAR VOLUME 91.5 fL (81-99); MONOCYTES # (AUTO) 0.5 (0.2-0.8); MONOCYTES % 3.7 % (4.4-11.3); NEUTROPHILS # (AUTO) 11.8 (2.1-6.9); NEUTROPHILS % 85.5 % (38.7-80.0); PLATELET COUNT 205 x10e3/uL (140-360); RED BLOOD COUNT 3.89 x10e6/uL (4.3-5.7); RED CELL DISTRIBUTION WIDTH 13.5 % (11.7-14.4)
[2019-07-05 06:15] LABS: ALANINE AMINOTRANSFERASE 12 IU/L (0-55); ALBUMIN 2.3 g/dL (3.5-5.0); ALBUMIN/GLOBULIN RATIO 0.7 (0.8-2.0); ALKALINE PHOSPHATASE 59 IU/L (40-150); ANION GAP 12.5 mmol/L (8-16); BLOOD UREA NITROGEN 8 mg/dL (7-26); BUN/CREATININE RATIO 11 (6-25); CALCIUM 8.7 mg/dL (8.4-10.2); CARBON DIOXIDE 28 mmol/L (22-29); CHLORIDE 96 mmol/L (98-107); CREATININE, SERUM 0.71 mg/dL (0.72-1.25); EST GLOMERULAR FILTRATION RATE > 60 ML/MIN (60-); GLUCOSE 79 mg/dL (74-118); POTASSIUM 3.5 mmol/L (3.5-5.1); SODIUM 133 mmol/L (136-145)
--- NOTE | 2019-07-05 07:00 | NUR ---
BEDSIDE SHIFT REPORT RECEIVED FROM THE TICKET PRINTER AND TAGGER RN. EDUCATED PT ABOUT FALL PRECAUTIONS. CALL LIGHT WITH IN EASY REACH. INSTRUCTED PT TO USE CALL LIGHT FOR ALL THE NEEDS. PT VERBALIZED UNDERSTANDING. BED IS LOW AND LOCKED. PT DENIED FURTHER NEEDS.
--- NOTE | 2019-07-05 07:00 | NUR ---
Patient resting comfortably. Walking rounds done. Shift report given to oncoming nurse regarding patient's status.
--- NOTE | 2019-07-05 07:21 | NUR ---
Dr. Elkins here to see patient. New order received to change Dilaudid 1 mg Q3H PRN to Q6H PRN.
[2019-07-05] MEDS: DICYCLOMINE HCL 10 MG CAP PO SCH ×3 (08:21→20:30)
[2019-07-05] MEDS: FAMOTIDINE 20 MG/2 ML VIAL IV SCH ×2 (08:21→20:30)
[2019-07-05] MEDS ORDERED: AMLODIPINE BESYL5 MG PO (08:24)
--- NOTE | 2019-07-05 08:35 | NUR ---
PAGED DR. HADDAD REGARDING PT BLOOD PRESSURE. START HOME MED AMLODIPINE 5 MG PO DAILY PER THE DR. PT TOLERATED CLEAR LIQUID WELL. KEEP THE PT ON CLEAR LIQUID FOR THE DAY PER THE
[2019-07-05] MEDS: AMLODIPINE BESYLATE 5 MG TAB PO SCH (09:17)
--- NOTE | 2019-07-05 09:20 | Progress Note ---
DATE: SUBJECTIVE: The patient is coming here for acute pancreatitis. Currently, the patient is asymptomatic. Abdominal pain is better, still getting hydromorphone though. No chest pain. No shortness of breath. He has had a bowel movement. Bowel sounds positive and audible. The patient is hungry at this time. OBJECTIVE: VITAL SIGNS: The patient's temperature is 98.8, T-max is 100.8 at , respirations 18, blood pressure is 167/91, pulse oximetry of 94%. HEENT: Normocephalic and atraumatic. Pupils are reactive to light and accommodation. CVS: S1 and S2 normal. Regular rate and rhythm. ABDOMEN: Soft. Slight tenderness present in the epigastric area in the left upper quadrant. EXTREMITIES: No clubbing, no cyanosis, no edema. INTEGUMENTARY SYSTEM: Positive for psoriasis. LABORATORY VALUES: Today's sodium is 133, potassium 3.5, BUN of 8, creatinine of 0.71. The patient's lipase is 208 and is trending down. ASSESSMENT: 1. Acute pancreatitis secondary to alcohol. 2. Leukocytosis, trending down. The patient is on Zosyn. 3. Pain control. Continue on hydromorphone and tramadol. 4. Hypertension. Continue on hydralazine 10 mg q.6 hours. Further recommendation per clinical course. We will continue to monitor the patient. We will trend his lipase for tomorrow and advance his diet to clear liquid diet. MD SOY Petersen/MODL /[id number]
--- NOTE | 2019-07-05 19:00 | NUR ---
BEDSIDE SHIFT REPORT GIVEN TO THE TOXICOLOGY TEACHER RN. PT DENIED FURTHER NEEDS.
--- NOTE | 2019-07-05 19:30 | NUR ---
Patient visited in room during nursing rounds. Patient alert and oriented x3. Pt experiencing intermittent abdominal pain (5-6 in pain rating scale). Pt on clear liquid diet at this time and states he feel he is ready to advance his diet. No c/o nausea and vomiting. Pt on IVF (LR at 70 ml/hr). Ambulatory in room prn. Call gómez within reach.
[2019-07-05] MEDS: HYDRALAZINE HCL 20 MG/ML VIAL IV PRN (23:41)
[2019-07-06] VITALS (8 sets, daily range): BP systolic 133–184; BP diastolic 80–95
[2019-07-06] MEDS: KETOROLAC TROMETHAMINE 30 MG/ML VIAL IV PRN ×4 (00:10→22:04)
--- NOTE | 2019-07-06 00:40 | NUR ---
Dr. Ned Cuenca came and visited pt in room. MD aware of pt condition. MD stated he will order to advance pt diet from clear liquid to full liquid.
[2019-07-06] MEDS: PIPER-TAZ 3.375 GM 50 ML IV SCH ×4 (02:05→21:54)
[2019-07-06] MEDS: HYDROMORPHONE 1MG/1ML INJ IV PRN ×3 (03:17→18:39)
[2019-07-06 06:40] LABS: BASOPHILS # (AUTO) 0.1 (0.0-0.1); BASOPHILS % 0.5 % (0.0-1.0); EOSINOPHILS # (AUTO) 0.1 (0.0-0.4); EOSINOPHILS % 0.6 % (0.0-6.0); HEMATOCRIT 36.3 % (38.2-49.6); LYMPHOCYTES # (AUTO) 1.1 (1.0-3.2); MEAN CORPUSCULAR HEMOGLOBIN 32.2 pg (28-32); MEAN CORPUSCULAR HGB CONC 35.8 g/dL (31-35); MEAN CORPUSCULAR VOLUME 89.9 fL (81-99); MONOCYTES # (AUTO) 0.8 (0.2-0.8); MONOCYTES % 6.5 % (4.4-11.3); NEUTROPHILS # (AUTO) 10.5 (2.1-6.9); NEUTROPHILS % 82.2 % (38.7-80.0); PLATELET COUNT 265 x10e3/uL (140-360); RED BLOOD COUNT 4.04 x10e6/uL (4.3-5.7); RED CELL DISTRIBUTION WIDTH 13.2 % (11.7-14.4)
[2019-07-06] MEDS ORDERED: TEMAZEPAM 7.5 MG CAP PO PRN (06:45)
--- NOTE | 2019-07-06 07:00 | NUR ---
BEDSIDE SHIFT REPORT RECEIVED FROM THE METAL MOLD DRESSER RN. EDUCATED PT ABOUT FALL PRECAUTIONS. CALL LIGHT WITH IN EASY REACH. INSTRUCTED PT TO USE CALL LIGHT FOR ALL THE NEEDS. PT VERBALIZED UNDERSTANDING. BED IS LOW AND LOCKED. SIDE RAILS X2. PT DENIES NEEDS AT THIS TIME.
[2019-07-06] MEDS: DICYCLOMINE HCL 10 MG CAP PO SCH ×3 (08:09→21:54)
[2019-07-06] MEDS: FAMOTIDINE 20 MG/2 ML VIAL IV SCH ×2 (08:09→21:54)
[2019-07-06] MEDS: HYDRALAZINE HCL 20 MG/ML VIAL IV PRN (08:10)
--- NOTE | 2019-07-06 08:23 | Progress Note ---
DATE: SUBJECTIVE: The patient is a 39-year-old male comes in with pancreatitis. The patient's CT did show pancreatic tail early necrosis. Currently, the patient is feeling better, tolerated clear liquid diet. The patient's lipase has been trending down. PHYSICAL EXAMINATION: VITAL SIGNS: Temperature is 99.7, pulse of 78, respirations of 18, blood pressure is 155/80, and pulse oximetry of 92%. HEENT: Normocephalic and atraumatic. Pupils are reactive to light and accommodation. CVS: S1 and S2 normal. Regular rhythm. ABDOMEN: Slightly tender in the epigastrium. EXTREMITIES: No clubbing, no cyanosis, no edema. LABORATORY VALUES: Chemistries, today's lipase is pending. ASSESSMENT AND PLAN: 1. Acute pancreatitis secondary to alcohol. 2. Leukocytosis. We will check his blood workup tomorrow. Continue on Zosyn. Pain control. 3. Hypertension. Continue hydralazine 10 mg p.o. q.6 hours and amlodipine has been restarted. Further recommendation per clinical course. We will continue to monitor the patient. The patient again advance to full liquid diet and progression. He will be seen and possible discharge later today or tomorrow morning. MD SOY Petersen/SHEYLA /[id number]
[2019-07-06] MEDS: AMLODIPINE BESYLATE 5 MG TAB PO SCH (09:06)
--- NOTE | 2019-07-06 15:30 | NUR ---
PAGED DR. HADDAD REGARDING PT DIET. OKAY TO START GI SOFT PER THE
[2019-07-06] MEDS: LACTATED RINGER'S 1,000 ML IV SCH (17:36)
--- NOTE | 2019-07-06 19:00 | NUR ---
BEDSIDE SHIFT REPORT GIVEN TO THE ACCOUNT EXECUTIVE METALWORKING RN. PT DENIED FURTHER NEEDS.
[2019-07-06] MEDS ORDERED: TEMAZEPAM 15 MG CAP PO PRN (22:45)
[2019-07-07] MEDS: PIPER-TAZ 3.375 GM 50 ML IV SCH ×2 (02:25→07:45)
--- NOTE | 2019-07-07 05:08 | NUR ---
Patient received lying in bed. AAO x 4. No acute distress noted . Safety measures implemented. Patient instructed to call for assistance when needed. Call light within reach.
[2019-07-07 05:41] VITALS: BP 157/93
[2019-07-07 05:47] LABS: BASOPHILS # (AUTO) 0.1 (0.0-0.1); BASOPHILS % 0.6 % (0.0-1.0); EOSINOPHILS # (AUTO) 0.3 (0.0-0.4); EOSINOPHILS % 3.3 % (0.0-6.0); HEMATOCRIT 35.6 % (38.2-49.6); HEMOGLOBIN 12.8 g/dL (14.0-18.0); LYMPHOCYTES # (AUTO) 1.1 (1.0-3.2); LYMPHOCYTES % 13.1 % (18.0-39.1); MEAN CORPUSCULAR HEMOGLOBIN 32.2 pg (28-32); MEAN CORPUSCULAR VOLUME 89.4 fL (81-99); MONOCYTES # (AUTO) 1.1 (0.2-0.8); MONOCYTES % 12.7 % (4.4-11.3); NEUTROPHILS % 69.3 % (38.7-80.0); PLATELET COUNT 295 x10e3/uL (140-360); RED BLOOD COUNT 3.98 x10e6/uL (4.3-5.7); RED CELL DISTRIBUTION WIDTH 13.3 % (11.7-14.4)
--- NOTE | 2019-07-07 07:00 | NUR ---
BEDSIDE SHIFT REPORT RECEIVED FROM THE PAYROLL LEAD RN. EDUCATED PT ABOUT FALL PRECAUTIONS. CALL LIGHT WITH IN EASY REACH. INSTRUCTED PT TO USE CALL LIGHT FOR ALL THE NEEDS. PT VERBALIZED UNDERSTANDING. BED IS LOW AND LOCKED. SIDE RAILS X2. PT DENIED FURTHER NEEDS.
[2019-07-07] MEDS ORDERED: PANTOPRAZOLE SO40 MG PO (07:33)
[2019-07-07] MEDS ORDERED: SODIUM CHLORIDE 0.9% 250ML 250 ML ONE (07:56)
[2019-07-07 08:00] VITALS: BP 159/82
[2019-07-07] MEDS: LACTATED RINGER'S 1,000 ML IV SCH (08:13)
[2019-07-07] MEDS: AMLODIPINE BESYLATE 5 MG TAB PO SCH (08:13)
[2019-07-07] MEDS: DICYCLOMINE HCL 10 MG CAP PO SCH (08:13)
[2019-07-07] MEDS: FAMOTIDINE 20 MG/2 ML VIAL IV SCH (08:13)
--- NOTE | 2019-07-07 08:30 | NUR ---
PT DISCHARGED HOME SAFELY WITH FAMILY. PT ESCORTED TO THE PRIVATE CAR AT THE FRONT ENTRANCE. RX GIVEN. IV REMOVED. TIP INTACT. DRESSING APPLIED. PT DENIED FURTHER NEEDS.
--- NOTE | 2019-07-07 09:04 | Progress Note ---
DATE: SUBJECTIVE: A 39-year-old male who comes in with alcoholic pancreatitis. The patient is currently feeling better. No chest pain. No shortness of breath. No nausea or vomiting. No pain. The patient is afebrile. MEDICATIONS: Zosyn, temazepam, ketorolac as needed, dicyclomine, famotidine, hydromorphone, and hydralazine as needed. The patient is also back on his amlodipine for blood pressure control currently. OBJECTIVE: VITAL SIGNS: Temperature is 99.0, pulse of 80, respirations of 18, blood pressure is 157/93. HEENT: Normocephalic and atraumatic. Pupils are reactive to light and accommodation. CVS: S1 and S2 normal. Regular rate and rhythm. ABDOMEN: Nontender and nondistended. EXTREMITIES: No clubbing, no cyanosis, no edema. LABORATORY VALUES: The patient's hematology; hemoglobin is 12.8, hematocrit 35.6, white count is trending down to be negative 8.60. Chemistry showed lipase of 103 down from 784. The patient has no other laboratory reports. ASSESSMENT: 1. A 39-year-old male with acute pancreatitis secondary to alcohol. 2. Leukocytosis. 3. Hypertension. PLAN: Okay to discharge, the patient is advised against alcohol. Strict warnings given. The patient also has been advised to go and join the group. Also, follow up with me in about 1 to 2 weeks. The patient is also asked to follow up with Dr. Ned Cuenca in 1 to 2 weeks. Further recommendation per clinical course. The patient can be discharged today. No further antibiotic and no further pain medication required for discharge. MD LUCERO PetersenJ/MODL /[id number]
== END 2019-07-07 08:33 | disposition home or self-care (01) | DRG 440 ==
LOC: ER 08:02 → ERHOLD 11:37 → MED/SURG2 12:05 → OBSVTOIN 07-03 09:11
PROVIDERS: ADMIT Family Medicine; ATTEND Family Medicine
DX: K85.21 Alcohol induced acute pancreatitis with uninfected necrosis (principal); F10.20 Alcohol dependence, uncomplicated; L40.4 Guttate psoriasis; I10 Essential (primary) hypertension; E86.0 Dehydration; K21.9 Gastro-esophageal reflux disease without esophagitis; E78.5 Hyperlipidemia, unspecified; F17.290 Nicotine dependence, other tobacco product, uncomplicated; Z82.49 Family history of ischemic heart disease and other diseases of the circulatory system
CPT/HCPCS: 36415; 74177; 80053; 80061; 80307; 80320; 81001; 82150; 83690; 85025; 99284; G0378; J0360; J0500; J1170; J1885; J2270; J2405; J2543; J7030; J7050; J7121; Q9967